=== PATIENT | male | born 1980 | race Caucasian/White ===

== ENCOUNTER 2020-01-12 14:28 | Outpatient (CLI) | payer OTHER, SELFPAY ==
--- NOTE | ~2020-01-12 | MR_ITS ---
EXAMINATION: MR lumbar spine wo con DATE: 01/12/2020 16:01 INDICATION: Lumbar radiculopathy TECHNIQUE: Magnetic resonance imaging (MRI) of the lumbar spine was performed without intravenous con trast. Sequences included sagittal T2-weighted FSE, sagittal T2-weighted FS FSE, sagittal T1-weighted FSE, and axial T2-weighted FSE. COMPARISON: None FINDINGS: Alignment is normal. Vertebral body heights are normal. Schmorl's node along the inferior endplate of L5 and along the endplates at both sides of the disc spaces from L3-L4 through T11-T12. T1 hyperinte nse hemangioma at T12. Otherwise normal marrow signal. Disc desiccation and mild disc height loss at L2-L3. Congenitally small lumbar central canal. The conus medullaris terminates at T12-L1. There is n ormal signal in the caudal spinal cord. Paravertebral soft tissues are unremarkable. The following di sc levels are specifically discussed: T12-L1: The disc does not extend beyond the endplate margin. There is mild bilateral facet joint oste oarthritis. There is no neural foraminal stenosis. There is no central canal stenosis. L1-L2: The disc does not extend beyond the endplate margin. There is mild hypertrophy of the ligament um flavum. There is mild right and minimal left facet joint osteoarthritis. There is no neural brenda inal stenosis. There is mild central canal stenosis. L2-L3: Disc is mildly bulging. There is mild is hypertrophy of the ligamentum flavum. There is mild bilateral facet joint osteoarthritis. There is mild to moderate bilateral neural foraminal stenosis. There is moderate central canal stenosis. L3-L4: Disc is minimally bulging. There is mild hypertrophy of the ligamentum flavum. There is mild b ilateral facet joint osteoarthritis. There is mild to moderate bilateral neural foraminal stenosis. T here is moderate to severe central canal stenosis. L4-L5: Disc is minimally bulging. There is mild hypertrophy of the ligamentum flavum. There is modera te bilateral facet joint osteoarthritis. There is moderate bilateral neural foraminal stenosis. There is moderate central canal stenosis. L5-S1: Small central disc protrusion. There is mild bilateral facet joint osteoarthritis. There is mi ld to moderate bilateral neural foraminal stenosis. There is no central canal stenosis. IMPRESSION: 1. Multilevel moderate to severe central canal and mild to moderate bilateral neural foraminal stenos is in the mid to lower lumbar spine resulting from mild lumbar spondylosis superimposed over a congen itally small central canal. Reviewed, dictated and finalized at location A. IMPRESSION: 1. Multilevel moderate to severe central canal and mild to moderate bilateral n eural foraminal stenosis in the mid to lower lumbar spine resulting from mild l umbar spondylosis superimposed over a congenitally small central canal.
== END 2020-01-12 14:29 | disposition home or self-care (01) ==
PROVIDERS: PCP Family Medicine; Visit Provider Nurse Practitioner Family
DX: M47.26 Other spondylosis with radiculopathy, lumbar region (principal)
CPT/HCPCS: 72148

== ENCOUNTER 2021-01-11 05:54 | Emergency (ER) | payer OTHER, SELFPAY ==
--- NOTE | ~2021-01-11 | XR_ITS ---
EXAMINATION: XR chest 2V EXAM DATE: 01/11/2021 06:20 INDICATION: chest pain/SOB X TODAY, HISTORY OF HIGH BLOOD PRESSURE. TECHNIQUE: Frontal and lateral projections of the chest obtained and reviewed. Comparison is made to prior examination from 03/03/2014. FINDINGS: The lungs are clear. There are no pleural effusions. The cardiomediastinal silhouette is within normal limits. There is no pneumothorax suspected. The bones and soft tissues are unremarkab le. IMPRESSION: No acute cardiopulmonary findings. Reviewed, dictated and finalized at location A.
[2021-01-11 05:58] VITALS: BP 154/97; PULSE 92; RESP 17; TEMP 37.4; O2SAT 100
--- NOTE | 2021-01-11 06:07 | ECG_ITS ---
Measurements Intervals Marked Tree Rate: 89 P: 48 VT: 145 QRS: 29 QRSD: 90 T: 19 QT: 310 QTc: 378 Interpretive Statements SINUS RHYTHM BASELINE ARTIFACT- V2 NORMAL ECG Electronically Signed On 01-11-2021 7:59:18 CDT by Pablo tAkinson D.O.
[2021-01-11 06:21] LABS: Basophils Absolute Auto 0.1 K/mm3 (0.0-0.1); Basophils Percent Auto 0.9 % (0.2-1.2); Eosinophils Absolute Auto 0.3 K/mm3 (0-0.3); Eosinophils Percent Auto 4.6 % (0-4.4); Hematocrit 42.4 % (42.0-52.0); Hemoglobin 14.1 g/dL (14.0-18.0); Immature Granulocyte Absolute 0.02 K/mm3 (0.00-0.031); Immature Granulocyte Percent A 0.3 % (0-0.5); Lymphocytes Absolute Auto 2.64 K/mm3 (0.9-3.2); Lymphocytes Percent Auto 40.7 % (18.3-44.2); Mean Corpuscular HGB Conc 33.3 g/dl (32-36); Mean Corpuscular Hemoglobin 29.6 pg (26-34); Mean Corpuscular Volume 89.1 fl (80-100); Mean Platelet Volume 10.8 fl (7.4-10.4); Monocytes Absolute Auto 0.6 K/mm3 (0.1-0.6); Monocytes Percent Auto 8.8 % (2.6-8.5); Neutrophils Absolute Auto 2.9 K/mm3 (1.3-6.7); Neutrophils Percent Auto 44.7 % (45.5-73.1); Platelet Count Result 238 k/mm3 (150-375); Red Blood Count 4.76 M/mm3 (4.6-6.20); Red Cell Distribution Width 12.4 % (11.5-14.5); White Blood Count 6.5 K/mm3 (4.5-10.0)
[2021-01-11 06:28] LABS: INR 0.9; Prothrombin Time 11.6 Seconds (11.1-14.7)
[2021-01-11 06:30] LABS: Partial Thromboplastin Time 30.8 SECONDS (22.3-36.8)
[2021-01-11 06:35] LABS: Anion Gap 7 mmol/L (8-16); Blood Urea Nitrogen 25 mg/dL (9-20); Calcium 8.9 mg/dL (8.4-10.2); Carbon Dioxide 26 mmol/L (22-30); Chloride 104 mmol/L (98-107); Estimated CRCL calculation 160 ml/min; Estimated Glomerular Filt Rate > 60; Glucose 89 mg/dL (65-110); Potassium 4.1 mmol/L (3.4-5.0); Sodium 137 mmol/L (137-145)
[2021-01-11 06:45] VITALS: BP 142/75; PULSE 75; RESP 13; O2SAT 96
[2021-01-11 06:45] LABS: Troponin I < 0.012 ng/mL (0.000-0.034)
--- NOTE | 2021-01-11 07:21 | ED.CHESTPAIN ---
HPI - Chest Pain General Chief Complaint: Chest Pain Stated Complaint: coughing, chest pain down into arm Time Seen by Provider: 01/11/21 07:03 Source: RN notes reviewed History of Present Illness HPI narrative: Patient presents to emergency department from home for chest pain. Patient states he awoke from sleep at approximately 5 AM and a coughing spell. He states he was coughing aggressively began to develop shortness of breath as well as chest pain in the mid sternum going into the left anterior chest. States that this time the chest pain has resolved except for when he pushes on the chest told notes mild shortness of breath states he is feeling fine prior to going to bed last night he denies any fevers or chills abdominal pain nausea vomiting or any other symptoms Related Data Allergies Allergy/AdvReac Type Severity Reaction Status Date / Time No Known Allergies Allergy Verified 01/11/21 06:05 Review of Systems Review of Systems: Gen.: Denies fevers or chills Eyes: Denies eye pain or visual change ENT: Denies congestion Respiratory: See HPI CV: Reports chest pain GI: Denies abdominal pain nausea, emesis or diarrhea Musculoskeletal: Denies back pain or muscle pain Neuro: Denies numbness, tingling, weakness or focal weakness Skin: Denies rash Except as documented, all other systems reviewed and negative [facility] Past Medical History Medical History (Updated 01/11/21 @ 10:26 by Paras Krause DO) Bursitis and tendinitis of shoulder region Family History Family History Grandparent Diabetes mellitus Father Heart attack Social History Social History Smoking status: Current some day smoker Tobacco type: e-cigarettes/vaping Alcohol intake: never Substance use: never Exam Narrative: APPEARANCE: No acute distress, nontoxic, resting in bed EYES: EOMI HEENT: Normocephalic, atraumatic, OMM RESPIRATORY: No respiratory distress Clear to auscultation bilaterally with no rhonchi wheezing or rales. CARDIOVASCULAR: Regular rate and rhythm without murmurs rubs or gallops. Chest: Tender palpation over the lower chest just to the left of the sternum and regions of ribs 6 through 8 as well as in the left anterior chest wall pain increased with deep inspiration ABDOMINAL: Soft, nontender, nondistended, no rebound or guarding MUSCULOSKELETAl: Moves all extremities. No clubbing, cyanosis or edema. NEURO: Awake and alert. Following commands, speech normal, no focal deficits SKIN:: Warm, dry. No rashes lesions or abrasions PSYCHIATRIC: Normal affect/mood, Course Course Emergency Course: Patient states pain is improved with medication Discussed with patient results of workup and diagnosis. Discussed need for follow-up with primary care, proper use of medication, and reasons to return to the emergency department. Patient understands and agrees to current treatment plan Vital Signs Vital signs: Vital Signs Temperature 99.3 F 01/11/21 05:58 Pulse Rate 92 01/11/21 05:58 Respiratory Rate 17 01/11/21 05:58 Blood Pressure 154/97 H 01/11/21 05:58 Pulse Oximetry 100 01/11/21 05:58 Temperature 99.3 F 01/11/21 05:58 Pulse Rate 72 01/11/21 08:01 Respiratory Rate 16 01/11/21 08:01 Blood Pressure 124/78 01/11/21 08:01 Pulse Oximetry 100 01/11/21 08:01 MDM - Chest Pain MDM Narrative Medical decision making narrative: Patient's EKGs and labs are without significant high risk changes. Cardiac risk factors reviewed. Patient is felt likely low risk for ACS and reasonable for further risk stratification testing as an outpatient. Pain was not sudden or maximal in onset without tearing or ripping quality. No other signs of symptoms suggest aortic dissection. A low-risk Wells criteria is noted, PE is felt to be unlikely. No pneumonia seen on evaluation today. Patient is felt to be a reasonable ca
[2021-01-11] MEDS: KETOROLAC 30 MG/ML VIAL (*BKC) IV PUSH (07:31)
[2021-01-11 07:34] LABS: Alanine Aminotransferase 22 U/L (4-50); Albumin Level 4.3 g/dL (3.5-5.1); Alkaline Phosphatase 73 U/L (38-126); Aspartate Amino Transferase 27 U/L (17-59); Bilirubin,Total < 0.1 mg/dL (0.2-1.3)
[2021-01-11 08:01] VITALS: BP 124/78; PULSE 72; RESP 16; O2SAT 100
[2021-01-11 08:07] LABS: D Dimer 0.25 ug/mL (<0.48)
[2021-01-11 09:52] LABS: Troponin I < 0.012 ng/mL (0.000-0.034)
[2021-01-11 11:00] VITALS: BP 125/73; PULSE 61; RESP 16; TEMP 36.8; O2SAT 97
== END 2021-01-11 11:01 | disposition home or self-care (01) ==
PROVIDERS: Emergency Medicine; Emergency Provider Emergency Medicine; PCP Family Medicine
DX: R07.89 Other chest pain (principal)
CPT/HCPCS: 36415; 71046; 80048; 80076; 84484; 85025; 85380; 85610; 85730; 93005; 96374; 99284; J1885

== ENCOUNTER → 2021-05-19 01:18 | Outpatient (CLI) | payer OTHER, SELFPAY ==
[2021-05-19 20:42] LABS: SARS-CoV-2 RNA PCR Positive
== END ==
PROVIDERS: PCP Family Medicine; Visit Provider Physician Assistant Medical
DX: U07.1 COVID-19 (principal)
CPT/HCPCS: C9803; U0003; U0005

== ENCOUNTER 2023-12-28 10:56 | Outpatient (CLI) | payer OTHER, SELFPAY ==
[2023-12-28 12:03] LABS: Hematocrit 41.9 % (42.0-52.0); Mean Corpuscular HGB Conc 33.4 g/dl (32-36); Mean Corpuscular Hemoglobin 29.9 pg (26-34); Mean Corpuscular Volume 89.5 fl (80-100); Mean Platelet Volume 11.1 fl (7.4-10.4); Platelet Count Result 223 k/mm3 (150-375); Red Blood Count 4.68 M/mm3 (4.6-6.20); Red Cell Distribution Width 12.5 % (11.5-14.5); White Blood Count 6.1 K/mm3 (4.5-10.0)
[2023-12-28 12:13] LABS: Alanine Aminotransferase 19 U/L (6-50); Albumin Level 4.2 g/dL (3.5-5.1); Alkaline Phosphatase 60 U/L (38-126); Anion Gap 10 mmol/L (4-12); Aspartate Amino Transferase 22 U/L (17-59); Bilirubin,Total 0.6 mg/dL (0.2-1.3); Blood Urea Nitrogen 15 mg/dL (9-20); Calcium 8.9 mg/dL (8.4-10.2); Carbon Dioxide 27 mmol/L (22-30); Chloride 103 mmol/L (98-107); Cholesterol 135 mg/dL (0-200); Estimated Glomerular Filt Rate > 60; Glucose 93 mg/dL (65-110); HDL Direct 46 mg/dL; Sodium 140 mmol/L (137-145); Triglycerides 69 mg/dL (<150)
[2023-12-28 12:24] LABS: LDL Cholesterol Direct 66 mg/dL
[2023-12-28 12:47] LABS: Prostate Specific Antigen 0.4 ng/mL (< OR = 4.0)
== END 2023-12-28 10:57 | disposition home or self-care (01) ==
LOC: ANHLAB 10:58
PROVIDERS: PCP Family Medicine; Visit Provider Nurse Practitioner Family
DX: Z12.5 Encounter for screening for malignant neoplasm of prostate (principal); Z13.29 Encounter for screening for other suspected endocrine disorder; E66.01 Morbid (severe) obesity due to excess calories
CPT/HCPCS: 36415; 80053; 80061; 84153; 84443; 85027